=== PATIENT | male | born 1940 | race Caucasian/White ===

== ENCOUNTER 2025-07-08 06:27 | Inpatient (IN) ==
[2025-07-02 13:16] LABS: Basophils # (Auto) 0.03 K/mcL (0.00-0.30); Basophils % (Auto) 0.4 % (0.0-2.0); Eosinophils # (Auto) 0.12 K/mcL (0.00-0.70); Eosinophils % (Auto) 1.6 % (0.0-7.0); Hematocrit 45.9 % (40.1-51.0); Hemoglobin 15.2 g/dL (13.7-17.5); Lymphocytes # (Auto) 1.78 K/mcL (1.50-4.80); Lymphocytes % (Auto) 23.9 % (15.5-49.0); Mean Corpuscular HGB Conc 33.1 g/dL (31.0-36.0); Monocytes # (Auto) 0.92 K/mcL (0.10-0.90); Monocytes % (Auto) 12.4 % (1.0-12.0); Neutrophils % (Auto) 61.4 % (38.0-78.0); Platelet Count 275 K/mcL (140-440); RBC 4.70 M/mcL (4.63-6.08); WBC 7.4 K/mcL (4.5-11.0)
[2025-07-02 13:24] LABS: Bilirubin,Urine Negative (Negative); Color,Urine STRAW; Glucose,Urine (UA) Negative (Negative); Ketones,Urine Negative (Negative); Leukocyte Esterase,Urine Negative /uL (Negative); PH,Urine 5.0 (5.0-9.0); Protein,Urine Negative (Negative); Specific Gravity,Urine 1.010 (1.000-1.035); Urobilinogen,Urine Negative
[2025-07-02 13:26] LABS: Estimated Average Glucose(eAG) 134 mg/dL; Hemoglobin A1C 6.3 % Hgb (4.0-6.0)
[2025-07-02 13:35] LABS: INR 1.0 (0.9-1.1); Prothrombin Time 13.7 sec (11.9-14.5)
[2025-07-02 15:11] LABS: ALT/SGPT 30 U/L (<40); AST/SGOT 28 U/L (<40); Albumin 4.1 gm/dL (3.2-5.2); Albumin/Globulin Ratio 1.5 (1.0-2.3); Alkaline Phosphatase 124 U/L (39-117); Anion Gap 13.0 (8.0-16.0); Bilirubin,Total 0.5 mg/dL (0.1-1.0); Blood Urea Nitrogen 42 mg/dL (8-23); Calcium 9.2 mg/dL (8.6-10.4); Carbon Dioxide 22 mmol/L (22-30); Chloride 102 mmol/L (96-108); Globulin 2.8 gm/dL (2.2-3.7); Glucose 94 mg/dL (70-105); Potassium 4.5 mmol/L (3.3-5.1); Sodium 137 mmol/L (133-145)
[2025-07-08] MEDS ORDERED: SCOPOLAMINE 1 PATCH PATCH TOPICAL PRN (06:30)
[2025-07-08] MEDS ORDERED: IPRATROPIUM/ALBUTEROL 3 ML AMPUL.NEB NEB PRN ×2 (06:30→11:42)
[2025-07-08] MEDS: CELECOXIB 200 MG CAPSULE PO SCH (07:53)
[2025-07-08] MEDS: oxyCODONE 10 MG TAB.ER.12H PO SCH (07:53)
[2025-07-08] MEDS: PREGABALIN 75 MG CAPSULE PO SCH (07:54)
[2025-07-08] MEDS: ACETAMINOPHEN 500 MG TABLET PO SCH (08:15)
[2025-07-08] MEDS ORDERED: ONDANSETRON 4 MG/2 ML VIAL ONE (08:42)
[2025-07-08] MEDS ORDERED: LIDOCAINE 2% PF 5 ML VIAL ONE (08:42)
[2025-07-08] MEDS ORDERED: DEXAMETHASONE 10 MG/ML VIAL ONE (08:42)
[2025-07-08] MEDS ORDERED: TRANEXAMIC ACID 1,000 MG/10 ML VIAL ONE (08:42)
[2025-07-08] MEDS ORDERED: ROPIVACAINE HCL/PF 30 ML VIAL IJ ONE (08:42)
[2025-07-08] MEDS ORDERED: PROPOFOL 200 MG/20 ML VIAL IV ONE (09:34)
[2025-07-08] MEDS: ceFAZolin 2 GM in DEXTROSE 5% IN WATER 50 ML IV SCH (10:45)
[2025-07-08] MEDS ORDERED: fentaNYL 100 MCG/2 ML VIAL ONE (10:48)
[2025-07-08] MEDS ORDERED: PHENYLephrine 1 MG/10 ML SYRINGE (ANEST) ONE (11:38)
[2025-07-08] MEDS ORDERED: HYDROmorphone 0.5 MG/0.5 ML SYRINGE IV PRN (11:42)
[2025-07-08] MEDS ORDERED: BENZOCAINE/MENTHOL 1 LOZENGE PO PRN (11:52)
[2025-07-08] MEDS ORDERED: MAGNESIUM HYDROXIDE 30 ML ORAL.SUSP PO PRN (11:52)
[2025-07-08] MEDS ORDERED: TEMAZEPAM 15 MG CAPSULE PO PRN (11:52)
[2025-07-08] MEDS ORDERED: ONDANSETRON 4 MG/2 ML VIAL IV PRN (11:52)
[2025-07-08] MEDS ORDERED: ACETAMINOPHEN 325 MG TABLET PO PRN (11:52)
[2025-07-08] MEDS: 0.9 % SODIUM CHLORIDE 9 ML, KETOROLAC 30 MG, ROPIVACAINE HCL/PF 49.5 ML, EPINEPHrine 0.... IJ SCH (12:15)
[2025-07-08] MEDS: TRANEXAMIC ACID 1,000 MG/10 ML VIAL IV ONE (12:35)
[2025-07-08] MEDS: KETOROLAC 15 MG/ML VIAL IV PRN (14:42)
[2025-07-08] MEDS: 0.9 % SODIUM CHLORIDE 1,000 ML IV SCH (14:43)
[2025-07-08] MEDS: 0.9 % SODIUM CHLORIDE 10 ML SYRINGE IV SCH (14:48)
[2025-07-08] MEDS: DOCUSATE SODIUM 100 MG CAPSULE PO SCH (21:25)
[2025-07-08] MEDS: PIOGLITAZONE 15 MG TABLET PO SCH (21:26)
[2025-07-08] MEDS: ATORVASTATIN 40 MG TABLET PO SCH (21:26)
[2025-07-08] MEDS: LEVOTHYROXINE 50 MCG TABLET PO SCH (21:26)
[2025-07-08] MEDS: ASPIRIN 81 MG TAB.CHEW CHEWED SCH (21:26)
[2025-07-09 06:58] VITALS: TEMP 98.2
[2025-07-09 08:54] VITALS: O2SAT 97
== END 2025-07-09 11:00 | disposition home or self-care (01) | DRG 488 ==
LOC: MEDSUR 06:27
PROVIDERS: ADMIT Orthopaedic Surgery; ATTEND Orthopaedic Surgery